=== PATIENT | female | born 1940 | race Caucasian/White ===

== ENCOUNTER 2025-05-18 08:42 | Day surgery (SDC) | payer MEDICARE, OTHER ==
[2025-05-18] VITALS (15 sets, daily range): BP systolic 95–143; BP diastolic 50–87
[~2025-05-18 08:42] MED LIST: AMLO10 PO; ASPI81CH PO; ATOR10 PO; CALCIUM CIT 311 EAC7 PO; CeFAZolin Sodium 2,000 MG in NS 100 ML IV SCH; Chlorhexidine Mouth Care 15 ML UDC MT SCH; DENOSUMAB 60 MG/1 ML SC; EUTHYROX50 MCG PO; MELA3 PO; MULVITA PO; NAPR220 PO; OMEP20ER PO; POTASSIUM GLU2.5 MEQ PO; PROLIA60 MG/1 ML SC; Prinivil10 MG PO; Ropivacaine 0.5% HCl/Pf 123.125 MG,EPINEPHrine HCL 0.25 MG,Ketorolac Tromethamine 15 MG... INFIL SCH; TRAM50 PO; Tranexamic Acid 100 ML IV SCH; VALS80 PO; VITAMIN D31000 UNIT PO; Vitamin B-121000 MCG PO
[2025-05-18] MEDS ORDERED: FentaNYL Citrate 50 MCG/ML 2 ML Injection ONE ×2 (08:53→09:46)
[2025-05-18] MEDS ORDERED: Midazolam HCl 1MG / ML 2ML Vial ONE (08:54)
[2025-05-18] MEDS ORDERED: Sugammadex Sodium 200 MG/2ML SDV (100 MG/ML) ONE (09:47)
[2025-05-18] MEDS ORDERED: Metoclopramide HCl 5MG / ML 2ML Vial IV PRN (10:25)
[2025-05-18] MEDS ORDERED: Magnesium Hydroxide Conc 10 ML UDC PO PRN (10:25)
[2025-05-18] MEDS ORDERED: Ondansetron HCl 2 MG / ML 2ML Vial IV PRN ×2 (10:30→12:50)
[2025-05-18] MEDS ORDERED: HYDROmorphone HCl/Pf 1MG SYR IV PRN ×3 (10:35→12:50)
[2025-05-18] MEDS ORDERED: FLU VACC TS2025(65UP)/MF59C/PF 45 MCG/0.5 ML SYRINGE IM SCH (10:35)
[2025-05-18] MEDS ORDERED: Phenylephrine HCl 100 MCG/ML-NS 10MLSYR (1MG/10ML) ONE (11:22)
[2025-05-18] MEDS ORDERED: ePHEDrine Sulfate 50 MG/ML 1ML Injection ONE (11:33)
[2025-05-18] MEDS ORDERED: Ketorolac Tromethamine 15mg Vial IV SCH (12:00)
[2025-05-18] MEDS ORDERED: Ondansetron HCl 2 MG / ML 2ML Vial ONE (12:42)
[2025-05-18] MEDS ORDERED: Dexamethasone Sod Phos 10 MG/ML 1ML VIAL ONE (12:42)
[2025-05-18] MEDS ORDERED: FentaNYL Citrate 50 MCG/ML 2 ML Injection IV PRN ×2 (12:45)
[2025-05-18] MEDS ORDERED: Ketorolac Tromethamine 30mg Vial ONE (14:14)
--- NOTE | 2025-05-18 15:15 | NUR ---
ARRIVAL TO SURG FLOOR TO FLOOR VIA HOSP BED. A&O x, VSS, HRR, LUNGS CLEAR. L KNEE w/TEFLA & TEGADERM, C/D/I. POLAR PACK IN PLACE. UPON ARIVAL, PT VOMITED BLACK EMESIS - MD YOUNG NOTIFIED. AWAITING POST OP VOID. SNACKS & DRINKS HELD AT THIS TIME.
[2025-05-18 17:34] LABS: Hematocrit 40.9 % (33.0-51.0); Hemoglobin 13.3 g/dL (11.5-16.0); Mean Corpuscular HGB Conc 32.5 g/dL (31.5-36.5); Mean Corpuscular Volume 93 fL (80-100); NRBC ABSOLUTE 0.00 K/mm3 (0.00-0.02); NRBC Auto 0.0 /100 WBC (0.0-0.2); Platelet Count 178 K/mm3 (150-400); RDW Coefficient Variation 13.6 % (11.7-14.2); RDW Standard Deviation 47.0 fL (35.1-46.3)
[2025-05-18 17:49] LABS: Prothrombin Time Results 11.9 Sec (9.7-11.5)
--- NOTE | 2025-05-18 18:09 | NUR ---
SHIFT SUMMARY S/P L TKA. A&O x4, VSS. L KNEE w/JAVED WRAP, C/D/I. POLAR PACK IN PLACE. AWAITING POST OP VOID. UPON ARRIVAL - BLACK EMESIS, MD YOUNG NOTIFIED, HOSP CONSULT ORDERED, LABS COMPLETED. STATES NO PAIN AT THIS TIME. CURRENTLY RESTING IN BED w/CALL LIGHT WITHIN REACH.
[2025-05-18 18:11] LABS: Alanine Aminotransfer (ALT/SGP 19.0 U/L (12-78); Albumin, Blood 3.7 g/dL (3.4-5.0); Albumin/Globulin Ratio 1.4 (0.8-1.8); Anion Gap 9.0 mmol/L (3-11); Aspartate Aminotrans (AST/SGOT 17.0 U/L (12-37); Bilirubin, Total 0.4 mg/dL (0.1-1.0); Blood Urea Nitrogen 14.0 mg/dL (8-24); CO2, Blood 22.0 mmol/L (21-32); Calcium, Blood 8.6 mg/dL (8.5-10.1); Chloride, Blood 109.0 mmol/L (98-108); Creatinine, Blood 0.85 mg/dL (0.40-1.00); Globulin, Blood 2.7 g/dL (2.2-4.0); Glucose, Blood 163.0 mg/dL (70-99); Potassium, Blood 4.0 mmol/L (3.5-5.5); Sodium, Blood 136.0 mmol/L (136-145); Total Protein, Blood 6.4 g/dL (6.4-8.2)
[2025-05-18] MEDS ORDERED: Pantoprazole Sodium 40 MG Injection IV ONE (19:15)
[2025-05-18] MEDS ORDERED: CeFAZolin Sodium 2,000 MG in NS 100 ML IV SCH (19:30)
[2025-05-18 21:57] LABS: Hematocrit 38.5 % (33.0-51.0); Hemoglobin 12.7 g/dL (11.5-16.0)
[2025-05-19 03:50] VITALS: BP 132/79
[2025-05-19 03:59] LABS: BASOPHILS ABSOLUTE AUTO 0.01 K/mm3 (0.00-0.23); BASOPHILS PERCENT AUTO 0 % (0-2); EOSINOPHILS ABSOLUTE AUTO 0.00 K/mm3 (0.00-0.68); EOSINOPHILS PERCENT AUTO 0 % (0-6); Hematocrit 37.9 % (33.0-51.0); Hemoglobin 12.3 g/dL (11.5-16.0); IMMATURE GRAN ABSOLUTE AUTO 0.03 K/mm3 (0.00-0.10); IMMATURE GRAN PERCENT AUTO 0 % (0-1); LYMPHOCYTES ABSOLUTE AUTO 0.39 K/mm3 (0.84-5.20); LYMPHOCYTES PERCENT AUTO 4 % (21-46); MONOCYTES ABSOLUTE AUTO 0.28 K/mm3 (0.16-1.47); MONOCYTES PERCENT AUTO 3 % (4-13); Mean Corpuscular HGB Conc 32.5 g/dL (31.5-36.5); Mean Corpuscular Volume 93 fL (80-100); NEUTROPHILS ABSOLUTE AUTO 8.28 K/mm3 (1.96-9.15); NEUTROPHILS PERCENT AUTO 92 % (41-73); NRBC ABSOLUTE 0.00 K/mm3 (0.00-0.02); NRBC Auto 0.0 /100 WBC (0.0-0.2); Platelet Count 180 K/mm3 (150-400); RDW Coefficient Variation 13.4 % (11.7-14.2); RDW Standard Deviation 46.5 fL (35.1-46.3)
[2025-05-19 04:38] LABS: Anion Gap 9.0 mmol/L (3-11); Blood Urea Nitrogen 15.0 mg/dL (8-24); CO2, Blood 23.0 mmol/L (21-32); Calcium, Blood 8.3 mg/dL (8.5-10.1); Chloride, Blood 109.0 mmol/L (98-108); Creatinine, Blood 0.78 mg/dL (0.40-1.00); Glucose, Blood 155.0 mg/dL (70-99); Magnesium, Blood 2.3 mg/dL (1.6-2.4); Potassium, Blood 4.6 mmol/L (3.5-5.5); Sodium, Blood 136.0 mmol/L (136-145)
--- NOTE | 2025-05-19 04:43 | NUR ---
SHIFT SUMMARY KARIS WAS ALERT AND FULLY ORIENTED ON ASSESMENT. PAIN WELL CONTROLLED. DRESSING C.D.I. PT DENIES SOB, CHEST PAIN. PT HAD ONE EPISODE OF EMESIS AT START OF SHIFT, NAUSEA RESOLVED W/O MEDICAION. PT AMB/VOIDING APPROPRIATELY. SENSATION/CIRCULATION TO BLE INTACT. NO ACUTE EVENTS THIS SHIFT NO NOTED CHANGES TO PT CONDITION.
[2025-05-19 07:10] VITALS: BP 122/62
[2025-05-19] MEDS ORDERED: Multivitamins 1 Tab PO SCH (09:00)
[2025-05-19] MEDS ORDERED: Misc. Tablet PO SCH (09:00)
[2025-05-19] MEDS ORDERED: Calcium Citrate 315 MG/Vitamin D 250 IU Tab PO SCH (09:00)
[2025-05-19] MEDS ORDERED: OMEP20ER PO (11:38)
[2025-05-19] MEDS ORDERED: OXYC5 PO (11:42)
[2025-05-19] MEDS ORDERED: ACET500 PO (11:43)
--- NOTE | 2025-05-19 13:00 | NUR ---
DISCHARGE PT HAS WORKED WELL w/ THERAPY. PAIN WELL CONTROLLED w/ TYLENOL. TOLERATING CLEAR LQs & VOIDING WELL. SEEN BY ORTHO & MEDICINE. RECOMMENDATIONS FOR OTC OMEPRAZOLE BID x 1 MONTH & HOLD ASA UNTIL F/U APPNT w/ PCP THIS COMING FRIDAY FOR FURTHER INSTRUCTION. ULCER DIET PLAN INFO GIVEN. POLAR PACK SENT w/ PT. ESCORTED OUT VIA W/ALEJANDRO PT EAGERLY WANTS TO GO HOME.
== END 2025-05-19 12:45 | disposition home or self-care (01) ==
LOC: ORSCMMR 08:42 → ORD 10:00 → ORSCMMR 10:00 → SURS 14:34 → ORSCMMR 05-19 12:45
PROVIDERS: Nurse Practitioner Acute Care; Orthopaedic Surgery
PROC: 0SRD0J9 Replacement of Left Knee Joint with Synthetic Substitute, Cemented, Open Approach (ICD-10-PCS; principal; 2025-05-18 11:00)
DX: M17.12 Unilateral primary osteoarthritis, left knee (principal); I12.9 Hypertensive chronic kidney disease with stage 1 through stage 4 chronic kidney disease, or unspecified chronic kidney disease; N18.9 Chronic kidney disease, unspecified; K21.9 Gastro-esophageal reflux disease without esophagitis; E03.9 Hypothyroidism, unspecified; E78.5 Hyperlipidemia, unspecified; Z79.899 Other long term (current) drug therapy
CPT/HCPCS: 27447; 0055T; 36415; 73560-LT; 80048; 80053; 83735; 85014; 85018; 85025; 85027; 85610; 86850; 86900; 86901; 97110; 97116; 97161; 97530; A9270; C1713; C1776; J0166; J0690; J0735; J1100; J1885; J2250; J2371; J2405; J2470; J2704; J2795; J3010; J3373; J7050; J7120